=== PATIENT | female | born 1995 | race Caucasian/White ===

== ENCOUNTER 2020-08-30 16:33 | Inpatient (IN) | payer BC, OTHER ==
[~2020-08-30] VITALS: Ht 162.6 cm; Wt 67.1 kg
[~2020-08-30 16:33] MED LIST: COLACE 100MG C100 MG PO; PRENATAL VITAM1 EAC8 PO
[2020-08-30 17:15] LABS: RED BLOOD COUNT 4.37 M/UL (4.00-5.10); WHITE BLOOD COUNT 9.5 K/UL (4.5-11.0)
[2020-08-30] MEDS ORDERED: HEPARIN SO5000 UNIT/ INJ (17:41)
[2020-08-30] MEDS ORDERED: PRENATAL VITAM1 EAC5 PO (17:41)
[2020-08-30] MEDS ORDERED: COLACE100 MG PO (17:42)
[2020-08-30] MEDS ORDERED: GLUCOPHAGE 500500 MG PO (17:43)
[2020-08-31] MEDS ORDERED: DOCUSATE SODIU100 MG PO (15:00)
[2020-08-31] MEDS ORDERED: LOVENOX40 MG/0.4 SQ (15:00)
[2020-08-31] MEDS ORDERED: IBUPROFEN600 MG PO (15:00)
== END 2020-09-01 17:25 | disposition home or self-care (01) | DRG 806 ==
LOC: GENOP 16:33 → OB 16:50
PROVIDERS: ADMIT Obstetrics & Gynecology
PROC: 10E0XZZ Delivery of Products of Conception, External Approach (ICD-10-PCS; principal; 2020-08-30)
PROC: 4A1HXCZ Monitoring of Products of Conception, Cardiac Rate, External Approach (ICD-10-PCS; 2020-08-30)
PROC: 3E033VJ Introduction of Other Hormone into Peripheral Vein, Percutaneous Approach (ICD-10-PCS; 2020-08-30)
PROC: 10907ZC Drainage of Amniotic Fluid, Therapeutic from Products of Conception, Via Natural or Artificial Opening (ICD-10-PCS; 2020-08-30)
PROC: 0UQMXZZ Repair Vulva, External Approach (ICD-10-PCS; 2020-08-30)
DX: O99.12 Other diseases of the blood and blood-forming organs and certain disorders involving the immune mechanism complicating childbirth (principal); D68.59 Other primary thrombophilia; Z37.0 Single live birth; Z3A.37 37 weeks gestation of pregnancy; O24.424 Gestational diabetes mellitus in childbirth, insulin controlled; Z20.822 Contact with and (suspected) exposure to COVID-19; O71.82 Other specified trauma to perineum and vulva
CPT/HCPCS: 36415; 51702; 81001; 82800; 82962; 85014; 85018; 85025; J1650; J2590; J7030

== ENCOUNTER → 2020-09-26 | Outpatient (CLI) | payer OTHER ==
[~2020-09-26] MED LIST changes: +COLACE100 MG PO; +DOCUSATE SODIU100 MG PO; +GLUCOPHAGE 500500 MG PO; +HEPARIN SO5000 UNIT/ INJ; +IBUPROFEN600 MG PO; +LOVENOX40 MG/0.4 SQ; +PRENATAL VITAM1 EAC5 PO
== END ==
LOC: US 10:00
DX: R10.11 Right upper quadrant pain (principal); R94.5 Abnormal results of liver function studies; K80.20 Calculus of gallbladder without cholecystitis without obstruction; K76.0 Fatty (change of) liver, not elsewhere classified
CPT/HCPCS: 76705

== ENCOUNTER 2020-10-11 11:57 | Emergency (ER) | payer OTHER ==
[2020-10-11 13:11] LABS: HEMOGLOBIN 15.3 gm/dl (12.3-15.3); RED BLOOD COUNT 4.88 M/UL (4.00-5.10); WHITE BLOOD COUNT 9.5 K/UL (4.5-11.0)
[2020-10-11 13:40] LABS: BUN/CREATININE RATIO 22 (0-10)
== END 2020-10-11 17:33 | disposition home or self-care (01) ==
LOC: ER1 11:57
PROVIDERS: Physician Assistant
DX: R10.12 Left upper quadrant pain (principal)
CPT/HCPCS: 80053; 81001; 82150; 83690; 84703; 85025; 99284; Q9967

== ENCOUNTER → 2020-10-26 | Outpatient (CLI) | payer OTHER | LOC: MRI 09:30 | DX: K80.10 Calculus of gallbladder with chronic cholecystitis without obstruction (principal); R79.89 Other specified abnormal findings of blood chemistry | CPT/HCPCS: 74181 ==

== ENCOUNTER → 2021-11-14 | Outpatient (CLI) | payer OTHER | LOC: KOH-I 14:06 | DX: E04.1 Nontoxic single thyroid nodule (principal) | CPT/HCPCS: 76536 ==